=== PATIENT | male | born 1990 | race African-American/Black ===

== ENCOUNTER 2017-03-24 21:15 | Inpatient (IN) | payer SELFPAY ==
[~2017-03-24 21:15] MED LIST: ISOVUE-370 76%-LOCM 1 ML ONE
[2017-03-24 22:10] LABS: #Basophils 0.1 thou/uL (0.0-0.2); #Lymphocytes 2.8 thou/uL (1.20-3.40); #Monocytes 2.2 thou/uL (0.11-0.59); #Neutrophils 11.6 thou/uL (1.40-6.50); %Basophils 0.3 % (0.0-1.0); %Eosinophils 0.1 % (0.0-10.0); %Lymphocytes 16.5 % (21.0-51.0); %Monocytes 13.4 % (0.0-10.0); Hematocrit 44.9 % (42.0-52.0); Mean Platelet Volume 6.8 fL (7.4-10.4); Red Blood Cell (RBC) Count 5.23 mill/uL (4.70-6.10); White Blood Cell (WBC) Count 16.7 thou/uL (4.8-10.8)
[2017-03-24] MEDS ORDERED: Ketorolac Tromethamine 30 MG/ML VIAL ONE (22:22)
[2017-03-24] MEDS ORDERED: Ondansetron HCl/PF 4 MG/2 ML Vial ONE (22:22)
[2017-03-24 22:32] LABS: ALT (SGPT) 26 U/L (8-55); AST (SGOT) 26 U/L (5-34); Alkaline Phosphatase 81 U/L (40-150); Anion Gap 17 mmol/L (10-20); BUN (Urea Nitrogen) 8 mg/dL (8.9-20.6); Bilirubin, Total 1.1 mg/dL (0.2-1.2); Calc. Creatinine Clearance 0 mL/min (70-130); Calcium 9.5 mg/dL (7.8-10.44); Carbon Dioxide 24 mmol/L (22-29); Chloride 98 mmol/L (98-107); Estimated GFR-MDRD 89; Globulin 4.7 g/dL (2.4-3.5); Protein, Total 8.7 g/dL (6.0-8.3)
[2017-03-24 22:34] LABS: Lactic Acid - Sepsis 0.8 mmol/L (0.5-2.2)
--- NOTE | 2017-03-24 23:15 | CT ---
CT HEAD NONCONTRAST CT FACE WITH IV CONTRAST: History: Headache. Bleeding from right ear. FINDINGS: There is no evidence of acute intracranial hemorrhage or infarct. The ventricles appear normal in si ze, shape, and position. There is no mass effect or shift of midline structures. There is opacification of most of the right mastoid air cells and the right middle ear cavity. Opaci fication extends into the external auditory canal on the right, with stranding in the fat around the right ear. No abnormal areas of enhancement are seen adjacent to the right mastoid level after cont rast administration. IMPRESSION: 1. Large area of inflammation around the right ear with opacification of the right mastoid air cells and middle ear cavity. Cause is not evident. No abscess collections are visible on CT. 2. No acute intracranial abnormalities are demonstrated. POS: [facility]
[2017-03-25] MEDS ORDERED: Acetaminophen 325 MG TAB PO PRN (01:00)
[2017-03-25] MEDS ORDERED: Ketorolac Tromethamine 30 MG/ML VIAL IVP PRN (01:00)
[2017-03-25] MEDS ORDERED: Ondansetron ODT 4 MG TAB SL PRN (01:18)
[2017-03-25] MEDS ORDERED: Ondansetron HCl/PF 4 MG/2 ML Vial IVP PRN (01:18)
[2017-03-25] MEDS ORDERED: HYDROcodone/Acetaminophen 5/325 mg Tablet PO PRN ×2 (01:18)
[2017-03-25 01:19] VITALS: BMI 23.8
[2017-03-25] MEDS: Sodium Chloride 0.9% 1,000 ML IV SCH ×3 (01:25→21:55)
[2017-03-25] MEDS ORDERED: Potassium Chloride 20 MEQ TAB PO SCH (03:30)
[2017-03-25] MEDS ORDERED: Piperacillin/Tazobactam 3.375 GM in Sodium Chloride 0.9% 100 ML IVPB SCH ×2 (06:00→09:00)
--- NOTE | 2017-03-25 07:35 | HP-2 ---
CODE STATUS: FULL. PRIMARY CARE PHYSICIAN: Clark franz. ATTENDING: Dr. Moe Ibarra RESIDENT: Yrn Newell M.D. HISTORIAN: Patient. CHIEF COMPLAINT: Ear pain. HISTORY OF PRESENT ILLNESS: Roque Haile is a previously healthy 26-year-old male who presented wi th ear pain that started on Friday, approximately 4 days ago. He went to the ER on Friday and was g iven the diagnosis of otitis externa and given Ciprodex. He states that the ear pain worsened on . He returned to the ER and was given Toradol for pain. He over the weekend developed nausea , fever, swelling in his face and pain with opening his mouth. On Friday, he started to have pain b ehind his right ear and today, the day of admission he states the pain was 10/10 and so he returned to the ER. PAST MEDICAL HISTORY: None. PAST SURGICAL HISTORY: None. ALLERGIES: No known drug allergies. MEDICATIONS: None. FAMILY HISTORY: Noncontributory. SOCIAL HISTORY: The patient smokes an occasional cigarette maybe one every 2-3 days. Denies alcoho l or drug use. REVIEW OF SYSTEMS: Twelve point review of systems including general, eyes, ENT, respiratory, CV, GI , , skin, musculoskeletal, neuro and psych were reviewed and were negative with the exception of f ever, chills, appetite change, fatigue, nausea, vomiting, and weakness and ear pain. PHYSICAL EXAMINATION: VITAL SIGNS: Blood pressure 142/87, pulse 61, respiratory rate 18, T-max 98.6, pulse ox 98% on room air, current weight is 72 kilograms. GENERAL: The patient is alert and oriented x4, in no acute distress, well-developed, well-nourished , and appropriately interactive. EYES: Pupils equal, round, reactive to light and accommodation. Extraocular muscles intact. Conju nctiva within normal limits. ENT: Right ear tympanic membrane unable to visualize secondary to serosanguineous exudative dischar ge. Nasal mucosa and oropharynx within normal limits; however, the patient is unable to fully open the mouth secondary to pain. The patient does have tenderness to palpation behind the right ear. NECK: Supple, without lymphadenopathy or thyromegaly. CARDIOVASCULAR: Regular rate and rhythm. No murmurs or gallops. Radial pulses and pedal pulses eq ual bilaterally. RESPIRATORY: Normal effort, no retractions. LUNGS: Clear to auscultation bilaterally. SKIN: Warm and dry without cyanosis or lesions. ABDOMEN: Soft, nontender, bowel sounds x4. No mass or distention. EXTREMITIES: No clubbing, cyanosis or edema. MUSCULOSKELETAL: Structure and tone within normal limits. Full range of motion. NEUROLOGIC: No focal deficits. Sensation within normal limits. PSYCHIATRIC: Appropriate. LABORATORY DATA: White blood cell count 16.7, hemoglobin 14.4, hematocrit 44.9, platelets 325, 69% neutrophils. Sodium 136, potassium 3.4, chloride 98, bicarbonate 24, BUN 8, creatinine 1.19, glucos e 112, calcium 9.5, total protein 8.7, albumin 4.0, AST 26, ALT 26, alkaline phosphatase 81. Lactat e 0.8. IMAGING: CT of the head and face showed large inflammation around the right ear, opacification of r ight mastoid air cells and no evidence of abscess. ASSESSMENT AND PLAN: A 26-year-old male who presented with right ear pain. 1. Acute mastoiditis. Observation to Medical, possibly secondary to necrotizing otitis externa lianna rainer acute otitis media versus CSOM. The patient is currently on Rocephin. The patient received Jordon ephin in the ER and has shown some clinical improvement. Continue pain management. Consider ID con sult to discuss antibiotic treatment moving forward. May need to change antibiotics for pseudomonal coverage. No evidence of abscess or periosteal involvement or sepsis at this time. Consider repea t imaging if worsens clinically. 2. Mild hypokalemia. Replete as needed. 3. Elevated blood pressure without diagnosis of hypertension, likely secondary to pain. Continue t o monitor.
--- NOTE | 2017-03-25 08:26 | PDOC.EVN ---
Attending Addendum - Attending Addendum I personally evaluated the patient and discussed the management with Dr. Newell. I agree with the History, Examination, Assessment and Plan documented in his dictated H&P with any addition or exceptions noted below. Patient admitted with 4 days of increasing ear pain and current concern on exam as well as radiology for mastoiditis. Fortunately, patient is afebrile. Patient is currently on Vanc and Zosyn for coverage of MRSA, Hemophilus, Strep and other typical pathogens that cause this infection. Due to opacification of mastoid air cells, will consult ENT to ensure no need for debridement/ mastoidectomy. Symptomatic medications as needed for pain control.
[2017-03-25] MEDS ORDERED: Enoxaparin Sodium 40 MG/0.4 ML SYRINGE SC SCH (09:00)
[2017-03-25] MEDS ORDERED: FLU VACC QS2017-18 36 mo. & older 0.5 ML SYRINGE IM ONE (09:00)
[2017-03-25] MEDS ORDERED: Vancomycin HCl 1 GM in Premix Bag 1 BAG IVPB SCH (09:00)
[2017-03-25 09:25] LABS: #Eosinphils 0.1 thou/uL (0.0-0.7); #Lymphocytes 1.9 thou/uL (1.20-3.40); #Neutrophils 6.8 thou/uL (1.40-6.50); %Basophils 0.4 % (0.0-1.0); %Eosinophils 0.8 % (0.0-10.0); %Lymphocytes 19.7 % (21.0-51.0); %Monocytes 10.3 % (0.0-10.0); Hematocrit 45.3 % (42.0-52.0); Mean Platelet Volume 7.3 fL (7.4-10.4); Red Blood Cell (RBC) Count 5.22 mill/uL (4.70-6.10); White Blood Cell (WBC) Count 9.9 thou/uL (4.8-10.8)
[2017-03-25 09:44] LABS: Anion Gap 10 mmol/L (10-20); BUN (Urea Nitrogen) 11 mg/dL (8.9-20.6); Calc. Creatinine Clearance 106 mL/min (70-130); Carbon Dioxide 28 mmol/L (22-29); Chloride 104 mmol/L (98-107); Estimated GFR-MDRD Greater than 90
[2017-03-25] MEDS ORDERED: Ciprofloxacin HCL/Dexameth Otic Drops 7.5 ml Bottle L EAR SCH (11:00)
[2017-03-25] MEDS ORDERED: Ibuprofen 600 MG TAB PO PRN (12:23)
[2017-03-25] MEDS: Ciprofloxacin HCL/Dexameth Otic Drops 7.5 ml Bottle L EAR SCH (21:55)
[2017-03-26 04:38] VITALS: TEMP 98.6
[2017-03-26 07:15] LABS: #Basophils 0.1 thou/uL (0.0-0.2); #Eosinphils 0.1 thou/uL (0.0-0.7); #Lymphocytes 2.5 thou/uL (1.20-3.40); #Monocytes 1.1 thou/uL (0.11-0.59); #Neutrophils 4.7 thou/uL (1.40-6.50); %Basophils 0.6 % (0.0-1.0); %Eosinophils 1.7 % (0.0-10.0); %Lymphocytes 29.3 % (21.0-51.0); %Monocytes 13.1 % (0.0-10.0); Hematocrit 41.7 % (42.0-52.0); Mean Platelet Volume 7.1 fL (7.4-10.4); Red Blood Cell (RBC) Count 4.79 mill/uL (4.70-6.10); White Blood Cell (WBC) Count 8.5 thou/uL (4.8-10.8)
[2017-03-26] MEDS: Ciprofloxacin HCL/Dexameth Otic Drops 7.5 ml Bottle L EAR SCH (07:55)
[2017-03-26] MEDS: Sodium Chloride 0.9% 1,000 ML IV SCH (07:55)
--- NOTE | 2017-03-26 08:17 | PDOC.FM ---
- Subjective Subjective: Pt doing well this morning. Denies any acute events overnight. Still reports ear draining. Pt is tired as has not got much sleep. Says pain is being controlled. Tolerating abx. Denies any fevers/chills. Denies any nausea or vomitting. Denies any other problems at this time. - Objective Vital Signs & Weight: Vital Signs (12 hours) Temp 03/26/17 04:00 98.6 F 03/25/17 23:57 98.9 F Weight Weight 69.003 kg I&O: 03/25/17 03/26/17 03/27/17 06:59 06:59 06:59 Intake Total 1000 2721 Balance 1000 2721 Result Diagrams: 03/26/17 07:05 03/25/17 09:10 Radiology Reviewed by me: Yes (No new imaging to be reviewed today. ) <Jacobo Alberto - Last Filed: 03/26/17 08:16> - Objective Vital Signs & Weight: Vital Signs (12 hours) Temp Pulse Resp BP Pulse Ox 03/26/17 08:48 98.6 F 55 L 12 167/76 H 100 03/26/17 04:00 98.6 F Weight Weight 69.003 kg I&O: 03/25/17 03/26/17 03/27/17 06:59 06:59 06:59 Intake Total 1000 2721 180 Balance 1000 2721 180 Result Diagrams: 03/26/17 07:05 03/25/17 09:10 <Moe Ibarra - Last Filed: 03/26/17 15:18> Phys Exam - Physical Examination HEENT: PERRLA, moist MMs, oral pharynx no lesions L. TM non erythematous. Swollen at this time. Clear Drainage noted. TM intact Neck: no nodes, no JVD, supple, full ROM Respiratory: no wheezing, no rhonchi, clear to auscultation bilateral Cardiovascular: RRR, no significant murmur, no rub Gastrointestinal: soft, non-tender, no distention, positive bowel sounds Musculoskeletal: no edema Psychiatric: normal affect, A&O x 3 <Jacobo Alberto - Last Filed: 03/26/17 08:16> Dx/Plan (1) Otitis externa Code(s): H60.90 - UNSPECIFIED OTITIS EXTERNA, UNSPECIFIED EAR Status: Acute Plan: On IV ciprofloxacin and ciprodex drops at this time. -Ear swollen, no redness, drainage clear. Hearing intact WBC decreased today and normal. -Likely d/c today. Will send him home with oral ciprofloxacin and ciprodex drops. (2) Failure of outpatient treatment Code(s): Z78.9 - OTHER SPECIFIED HEALTH STATUS Status: Acute Plan: Pt was tx with ciprodex drops outpt before coming in. Continue to get worse before admission. Given IV abx for two days and shown improvement -Will send home on oral ciprofloxacin. -Will have him f/u with primary care in a week to assess improvement. <Jacobo Alberto - Last Filed: 03/26/17 08:16> Attending Addendum - Attending Addendum I personally evaluated the patient and discussed the management with Dr. Alberto. I agree with the History, Examination, Assessment and Plan documented above with any addition or exceptions noted below. Patient improved this morning from pain and swelling standpoint and his WBC has downtrended. ENT not concerned at this time for mastoiditis. Will discharge home with Cipro PO as well as Ciprodex drops. Ibuprofen as needed for pain. Needs to establish care and follow with PCP. <Moe Ibarra - Last Filed: 03/26/17 15:18>
[2017-03-26 08:48] VITALS: BP 167/76
== END 2017-03-26 12:21 | disposition home or self-care (01) | DRG 156 ==
LOC: ERS 21:15 → OBSVTOIN 03-25 00:18 → T4-A 03-25 00:18
PROVIDERS: ADMIT Emergency Medicine; ATTEND Emergency Medicine
DX: H60.392 Other infective otitis externa, left ear (principal); E87.6 Hypokalemia; R03.0 Elevated blood-pressure reading, without diagnosis of hypertension; F17.200 Nicotine dependence, unspecified, uncomplicated
CPT/HCPCS: 36415; 70450; 70487; 80048; 80053; 83605; 85025; 87040; A4216; J0696; J0744; J1885; J2405; J2543; J3370; J7050

== ENCOUNTER 2024-06-02 18:40 | Emergency (ER) | payer OTHER ==
[2024-06-02] MEDS ORDERED: HYDROcodone/Acetaminophen 10/325 mg Tablet ONE (20:20)
[2024-06-02] MEDS ORDERED: Ibuprofen 800 MG TAB ONE (20:20)
== END 2024-06-02 20:35 | disposition home or self-care (01) ==
LOC: ERS 18:40
DX: K02.9 Dental caries, unspecified (principal); F17.210 Nicotine dependence, cigarettes, uncomplicated
CPT/HCPCS: 99282